=== PATIENT | female | born 1930 | race Caucasian/White ===

== ENCOUNTER → 2017-10-30 | Outpatient (CLI) | payer MEDICARE | LOC: M RAD 13:15 | DX: N36.8 Other specified disorders of urethra (principal) | CPT/HCPCS: 76830 ==

== ENCOUNTER 2017-12-02 10:11 | Day surgery (SDC) | payer MEDICARE ==
[~2017-12-02 10:11] MED LIST: LR 1,000 ML IV
[2017-12-02] MEDS ORDERED: ONDANSETRON 4MG/2ML VIAL (J2405) As Ordered ×4 (11:28→12:55)
[2017-12-02] MEDS ORDERED: NEOSTIGMINE 10 MG/10 ML VIAL (J2710) As Ordered ×2 (11:28)
[2017-12-02] MEDS ORDERED: dexameTHASONE 4 MG/ML 1ML VIAL (J1100) As Ordered ×2 (11:28)
[2017-12-02] MEDS ORDERED: GLYCOPYRROLATE INJ 0.2 MG/ML 2 ML VIAL As Ordered ×2 (11:28)
[2017-12-02] MEDS ORDERED: KETOROLAC 60 MG/2 ML VIAL (J1885) As Ordered ×2 (11:28)
[2017-12-02] MEDS ORDERED: PROPOFOL 200 MG/20 ML VIAL As Ordered ×2 (11:28)
[2017-12-02] MEDS ORDERED: LIDOCAINE 2% INJ 100 MG/5 ML SDV (FOR ANES.) As Ordered ×2 (11:28)
[2017-12-02] MEDS ORDERED: MIDAZOLAM INJ 2 MG/2 ML VIAL (J2250) As Ordered ×2 (11:29)
[2017-12-02] MEDS ORDERED: fentaNYL 100 MCG/2 ML INJECTION (J3010) As Ordered ×4 (11:29→13:21)
[2017-12-02] MEDS ORDERED: ROCURONIUM BROMIDE 50 MG/5 ML VIAL As Ordered ×2 (11:37)
[2017-12-02] MEDS: LIDOCAINE 1% MDV 20ML VIAL As Ordered ×2 (13:45)
[2017-12-02] MEDS: BACITRACIN PWD 50,000 UNITS VIAL As Ordered ×2 (13:50)
[2017-12-02] MEDS: BUPIVACAINE/EPIN 0.25% 30 ML VIAL As Ordered ×2 (13:50)
[2017-12-02] MEDS: METHYLENE BLUE 0.5% (5MG/ML) 10 ML AMP (PROVAYBLUE)(Q9968 PER 1MG) As Ordered ×2 (14:08)
[2017-12-02] MEDS ORDERED: HYDROMORPHONE HCL 0.5 MG/ 0.5 ML SYRINGE (J1170 PER 1) As Ordered ×4 (14:20→14:33)
[2017-12-02] MEDS ORDERED: PERCOCET 5MG/325MG TAB As Ordered ×2 (14:21)
[2017-12-02] MEDS: PERCOCET 5MG/325MG TAB PO ×4 (14:23→14:55)
[2017-12-02] MEDS: HYDROMORPHONE HCL 0.5 MG/ 0.5 ML SYRINGE (J1170 PER 1) IV ×10 (14:25→14:50)
[2017-12-02] MEDS ORDERED: ONDANSETRON 4MG/2ML VIAL (J2405) IV ×2 (14:30)
[2017-12-02] MEDS ORDERED: LR 1,000 ML IV ×2 (14:30)
[2017-12-02] MEDS ORDERED: fentaNYL 100 MCG/2 ML INJECTION (J3010) IV ×2 (14:30)
== END 2017-12-02 18:10 | disposition home or self-care (01) ==
LOC: M SDC 10:11
DX: N30.10 Interstitial cystitis (chronic) without hematuria (principal); N36.8 Other specified disorders of urethra; E03.9 Hypothyroidism, unspecified; I12.9 Hypertensive chronic kidney disease with stage 1 through stage 4 chronic kidney disease, or unspecified chronic kidney disease; E11.9 Type 2 diabetes mellitus without complications; N18.2 Chronic kidney disease, stage 2 (mild); E78.00 Pure hypercholesterolemia, unspecified; M10.9 Gout, unspecified; K21.9 Gastro-esophageal reflux disease without esophagitis; M12.9 Arthropathy, unspecified; R32 Unspecified urinary incontinence; Z88.0 Allergy status to penicillin; Z88.1 Allergy status to other antibiotic agents; Z88.2 Allergy status to sulfonamides; Z88.6 Allergy status to analgesic agent; Z79.899 Other long term (current) drug therapy; Z87.440 Personal history of urinary (tract) infections; Z96.653 Presence of artificial knee joint, bilateral; Z90.710 Acquired absence of both cervix and uterus; Z96.1 Presence of intraocular lens
CPT/HCPCS: 53260